=== PATIENT | male | born 1955 | race Caucasian/White ===

== ENCOUNTER → 2018-04-21 | Outpatient (CLI) | payer OTHER ==
[~2018-04-21] MED LIST: FLOMAX0.4 MG PO; PERCOCET 5-3251 EACH PO; ZOFRAN ODT4 MG PO
== END ==
LOC: M.CT 07:59
DX: N20.0 Calculus of kidney (principal); N28.1 Cyst of kidney, acquired

== ENCOUNTER 2019-01-02 18:57 | Inpatient (IN) | payer OTHER ==
[~2019-01-02] VITALS: Ht 180.3 cm; Wt 82.6 kg
--- NOTE | ~2019-01-02 | OP ---
[address] [address] OPERATIVE REPORT Name: JEFF CASTANEDA Room: [address] IN [facility]#: [id number] Admission: 01/02/19 Attend Phys: German Grijalva, Discharge: Date of : 55 Report #: [id number] THIS REPORT FOR: //name// CC: [facility] Anish Grijalva DATE OF SERVICE: 01/03/2019 PREOPERATIVE DIAGNOSIS: Left ureteral obstruction with continued flank pain. POSTOPERATIVE DIAGNOSES: Left ureteral obstruction with continued flank pain secondary to a left proximal ureteral stone measured at a 4 x 6.[address] scan. PROCEDURE PERFORMED: Cystoscopy, bilateral retrograde pyelogram (due to some right-sided lower quadrant pain) and attempted left ureteral dilatation and left JJ stent placement. SURGEON: Narciso Burns MD COMPLICATIONS: None. DRAINS: Include a 6 x 28 cm stent in the left ureter. SPECIMEN: None. ANESTHETIC: General. BLOOD LOSS: None. COMPLICATIONS: None, although the ureter could not be dilated with ureteral access sheath. Stone location, 63-year-old male who has a prior history of stone disease, presented with left-sided flank pain, was found to have a 4 x 6 mm stone in the left proximal ureter. He continues to have pain, has been given the options of outpatient lithotripsy MET versus ureteroscopy and he has elected to proceed directly with ureteroscopy. He understands the procedure, risks, potential complications including but not limited to bleeding, infection, injury of the urinary tract or adjacent structures, need for additional procedures, inability to access the stone and need for either lithotripsy or repeat ureteroscopy. So following this, then the patient was taken to the operating room and placed under general anesthesia, prepped and draped in sterile fashion in the dorsal lithotomy position. Cystoscopy was carried out. The patient has a normal anterior urethra, minimally obstructive prostate and the bladder was free of lesions. The patient did complain of some right-[place] [id number] OPERATIVE REPORT Name: JEFF CASTANEDA Room: [address] IN ..#: [id number] Admission: 01/02/19 Attend Phys: German Grijalva, Discharge: Date of : 55 Report #: [id number] a right retrograde pyelogram was performed, which was totally normal. The left ureter on retrograde pyelogram had some diffuse dilatation and a small filling defect and calcification located approximately L2 consistent with the stone seen by CT scan. There was minimal hydronephrosis at this time of the actual renal collecting system. Following this, then a floppy tipped guidewire was advanced up beyond the stone and into the renal pelvis. Attempt was made to pass an 11/13 ureteral access sheath initially due to the small ureteral orifice even accommodate the Pollack catheter, which was only 6-Ukrainian was unsuccessful to pass beyond approximately 2 cm above the ureteral orifice. An attempt was made with the Lawler ureteral access sheath as well and this likewise was unsuccessful due to small caliber ureter. Therefore, it was felt best not to risk injury to the ureter and therefore, the cystoscope was backloaded over a wire and a 6 x 28 cm stent was placed with a coil in the renal pelvis and a coil in the bladder. Bladder was drained. The patient given a Toradol injection, B and O suppository, Uro-jet per urethra and returned to recovery room in satisfactory condition. Plan will be then to likely repeat ureteroscopy as the patient did not like his previous lithotripsy and the fact that he had the pass stone fragments and additionally the stone was not well seen on plain film. So we will have him return to the office in 1 week with KUB and then plan for probably 10-14 days repeat attempted ureteroscopy. By: [id number] Burns MD /francisco
[2019-01-02 19:07] VITALS: BP 157/99
[2019-01-02 19:29] LABS: URINE BILIRUBIN NEGATIVE (Negative); URINE BLOOD TRACE (Negative); URINE CLARITY CLEAR; URINE COLOR YELLOW; URINE GLUCOSE-RANDOM NEGATIVE (Negative); URINE KETONES TRACE (Negative); URINE LEUKOCYTES-REFLEX NEGATIVE (Negative); URINE NITRITE-REFLEX NEGATIVE (Negative); URINE PROTEIN NEGATIVE (Negative); URINE SPECIFIC GRAVITY <= 1.005 (1.005-1.030); URINE UROBILINOGEN 0.2 E.U./dl (0.2-1.0)
--- NOTE | 2019-01-02 19:36 | NUR ---
DR SAHU WITH PT AT 1915. STARTED 20 GUAGE SALINE LOCK IN LEFT HAND.
[2019-01-02 19:49] LABS: ABSOLUTE BASOPHILS 0.1 thou/uL (0.0-0.2); ABSOLUTE EOSINOPHILS 0.2 thou/uL (0.0-0.7); ABSOLUTE LYMPHOCYTES 2.2 thou/uL (0.8-5.3); ABSOLUTE MONOCYTES 0.6 thou/uL (0.0-1.2); ABSOLUTE NEUTROPHILS 2.9 thou/uL (1.6-8.1); BASOPHILS 1.1 %; EOSINOPHILS 3.6 %; HEMOGLOBIN 14.1 gm/dL (14.0-18.0); LYMPHOCYTES 36.8 %; MCH 31.7 pg (26.0-34.0); MCHC 34.3 g/dL (28.0-37.0); MCV 92.4 fL (80.0-100.0); MONOCYTES 9.8 %; MPV 8.3 fl. (7.2-11.1); NUCLEATED RBCS 0 /100WBC; PLATELET COUNT* 283 thou/uL (150-400); POLYS 48.7 %; RBC 4.43 mil/uL (4.50-6.00); RDW-CV 13.3 % (10.5-14.5); WBC 5.9 thou/uL (4.0-11.0)
[2019-01-02 20:10] LABS: ALBUMIN 3.9 g/dL (3.4-5.0); CALCIUM 8.8 mg/dL (8.5-10.1); CREATININE 0.9 mg/dL (0.6-1.3); POTASSIUM 3.8 mmol/L (3.5-5.1); TOTAL BILIRUBIN 0.5 mg/dL (<0.1-1.0); TOTAL PROTEIN 7.1 g/dL (6.4-8.2)
--- NOTE | 2019-01-02 21:14 | NUR ---
PT RECIEVED IV FENTANYL AND TORADOL FOR PAIN AT 1999 WITH GOO GOOD RESULTS. IV FUIDS INFUSING. PT'S AT BEDSIDE.
--- NOTE | 2019-01-02 22:50 | NUR ---
REPORT GIVEN TO HARI RICHMOND. PT TO BE ADMITTED TO ROOM 316.
[2019-01-02 22:52] VITALS: BP 131/82
[2019-01-02 23:45] VITALS: BP 131/84
--- NOTE | 2019-01-03 05:52 | NUR ---
PT ARRIVED ONTO UNIT AT 2300. ALERT AND ORIENTED. PLEASANT. DX OF URETERAL STONE AND DIVERTICULITIS. DENIED ANY NEED FOR NAUSEA MED. C/O PAIN TO LEFT FLANK. FENTANYL IV GIVEN WITH RELIEF. NPO AFTER MIDNIGHT. IV NS RUNNING AT 100 CC/HR TO LEFT WRIST. UP AD JOAQUÍN. SLEPT WELL. CALL LIGHT IN REACH.
[2019-01-03 08:00] VITALS: BP 135/81
--- NOTE | 2019-01-03 11:13 | NUR ---
SW attempted to meet with pt but pt was off of the unit at the time.
[2019-01-03 11:20] VITALS: BP 141/91
--- NOTE | 2019-01-03 11:30 | NUR ---
PT ALERT AND ORIENTED X 4. INDICATES PAIN @ 11/19. DENIES NAUSEA. NPO SINCE MN. IVF INFUSING @ 100. PATIENT HAD KUB IN AM. PATIENT TAKEN BY BED OFF UNIT TO HAVE PROCEDURE @ 1055.
--- NOTE | 2019-01-03 12:59 | NUR ---
PT RETURNED FROM PROCEDURE @ 1245 BY BED. IV PAIN MEDICATION GIVEN FOR PAIN CONTROL. STRAINER IN ROOM FOR URINE. WILL CONTINUE TO MONITOR.
--- NOTE | 2019-01-03 13:31 | EKG ---
[place] [address] ELECTROCARDIOGRAM REPORT Name: JEFF CASTANEDA Room: [address] ADM IN [facility].#: [id number] Admission: 01/02/19 Attend Phys: German Grijalva, Discharge: Date of : 55 Report #: [id number] THIS REPORT FOR: //name// [facility] Test Date: 2019-01-03 Test Time: 11:04:02 Pat Name: JEFF CASTANEDA Department: Room: [address] Gender: M [employer] Work[employer]: : 1955 Requested By: Magy Spencer Order Number: [id number] MD: Anish Lamar Measurements Intervals [place] Rate: 63 P: 40 GA: 150 QRS: -4 QRSD: 131 T: 24 QT: 433 QTc: 444 Interpretive Statements Sinus rhythm Right bundle branch block No previous ECG available for comparison Electronically Signed On 01-03-2019 13:31:06 CDT by Anish Lamar [email or web address] <ELECTRONICALLY SIGNED> By: Anish Lamar MD, [facility] 01/03/19 1331 D: [id number] Anish Lamar MD, FACC /EPI
[2019-01-03 17:41] VITALS: BP 126/78
--- NOTE | 2019-01-03 20:11 | NUR ---
PT ALERT AND ORIENTED X 4. UP TO SHOWER IN AFTERNOON. RECEIVED IV ANTIBIOTICS PER ORDER. ABDOMINAL PAIN MANAGED WITH IV AND PO MEDICATIONS. REFUSES TO WEAR END TITLE. HOURLY ROUNDS MAINTAINED. CALL LIGHT WITHIN REACH.
[2019-01-04] VITALS: BP 112/71
[2019-01-04 08:00] VITALS: BP 141/82
[2019-01-04] MEDS ORDERED: CIPRO500 MG PO (10:30)
[2019-01-04] MEDS ORDERED: SENNA S TABLET1 EACH PO (10:31)
[2019-01-04] MEDS ORDERED: LEVSIN0.125 MG SUBLING (10:32)
[2019-01-04] MEDS ORDERED: PERCOCET PO (10:33)
[2019-01-04] MEDS ORDERED: FLAGYL500 M1 PO (10:39)
[2019-01-04 10:42] VITALS: BP 141/82
--- NOTE | 2019-01-04 10:49 | NUR ---
Pt to dc home with today. IV abx finished and pt up ad linus. No dc needs expressed.
[2019-01-04] MEDS ORDERED: MIRALAX17 GM PO (10:54)
--- NOTE | 2019-01-04 12:25 | NUR ---
PATIENT DISCHARGED TO HOME. DISCHARGE PAPERS REVIEWED AND SIGNED. PRESCRIPTIONS AND INFORMATION SHEETS GIVEN. IV REMOVED. PATIENT GIVEN INFORMATION ON LOW FIBER DIET. PATIENT DENIES ANY FURTHER NEEDS. PATIENT TAKEN AMBULATORY TO EXIT. LEFT WITH .
[2019-01-04 13:26] VITALS: BP 141/82
== END 2019-01-04 12:25 | disposition home or self-care (01) | DRG 660 ==
LOC: M.ERS 18:57 → M.3W 21:29 → M.TBA-ER 21:29 → M.3W 23:03
PROVIDERS: Emergency Medicine; ADMIT Family Medicine
PROC: 0T778DZ Dilation of Left Ureter with Intraluminal Device, Via Natural or Artificial Opening Endoscopic (ICD-10-PCS; principal; 2019-01-03)
PROC: BT141ZZ Fluoroscopy of Kidneys, Ureters and Bladder using Low Osmolar Contrast (ICD-10-PCS; principal; 2019-01-03)
DX: N13.2 Hydronephrosis with renal and ureteral calculous obstruction (principal); K57.92 Diverticulitis of intestine, part unspecified, without perforation or abscess without bleeding; I10 Essential (primary) hypertension

== ENCOUNTER → 2019-01-02 | Outpatient (CLI) | payer OTHER ==
[2019-01-02 16:48] LABS: CREATININE 0.9 mg/dL (0.6-1.3)
== END ==
LOC: M.CT 16:00
PROVIDERS: Internal Medicine
DX: K42.9 Umbilical hernia without obstruction or gangrene (principal); N20.1 Calculus of ureter; J98.4 Other disorders of lung; J98.11 Atelectasis; N28.1 Cyst of kidney, acquired; K63.5 Polyp of colon; K21.9 Gastro-esophageal reflux disease without esophagitis; I10 Essential (primary) hypertension; Z68.26 Body mass index [BMI] 26.0-26.9, adult; Z98.890 Other specified postprocedural states

== ENCOUNTER → 2020-08-14 | Outpatient (CLI) | payer OTHER ==
[~2020-08-14] MED LIST changes: +CIPRO500 MG PO; +FLAGYL500 M1 PO; +LEVSIN0.125 MG SUBLING; +MIRALAX17 GM PO; +PERCOCET PO; +SENNA S TABLET1 EACH PO
== END ==
LOC: M.RAD 17:14
PROVIDERS: ATTEND Internal Medicine
DX: M25.532 Pain in left wrist (principal)